=== PATIENT | female | born 1985 | race Caucasian/White ===

== ENCOUNTER 2022-05-14 10:33 | Day surgery (SDC) | payer OTHER ==
[2022-05-14 11:06] LABS: Urine Blood Negative (Negative); Urine Glucose Negative (Negative); Urine Protein Negative (Negative)
[2022-05-14 11:20] LABS: Absolute Lymphocytes (CBC) 1.2 K/uL (0.7-4.9); Hematocrit 30.3 % (36.0-45.0); Lymphocytes % 23.9 % (15.3-44.8); MCV 70.5 fL (80-100); MPV 6.2 fL (7.6-11.3)
[2022-05-14 11:33] LABS: Urine Bacteria >50 /HPF (<20); Urine Mucus 1+ /HPF (None Seen); Urine RBC <5 /HPF (None Seen)
[2022-05-14 11:41] LABS: Albumin 3.5 g/dL (3.4-5.0); Bilirubin Total 0.2 mg/dL (0.2-1.0); Protein, Total 7.7 g/dL (6.4-8.2)
[2022-05-14] MEDS ORDERED: ONDANSETRON 4 MG/2 ML VIAL ONE ×2 (11:51→14:26)
[2022-05-14] MEDS ORDERED: NA CHLORIDE 0.9% 1,000 ML ONE (11:51)
--- NOTE | 2022-05-14 12:14 | RAD REPORT ---
EXAM DESCRIPTION: CTAbdomen Pelvis W Contrast - 05/14/2022 11:56 am CLINICAL HISTORY: Right lower quadrant abdominal pain COMPARISON: No comparisons TECHNIQUE: CT of the abdomen and pelvis was performed with IV contrast. All CT scans are performed using dose optimization technique as appropriate and may include automated exposure control or mA/KV adjustment according to patient size. FINDINGS: Lower chest: Circumferentially thickened distal esophagus suggesting esophagitis. Liver: No acute abnormality or suspicious lesions. Biliary: No biliary ductal dilatation. Stomach: Partial gastrectomy. Duodenum: No significant focal abnormality. Pancreas: No significant abnormality. Spleen: No significant abnormality. Adrenal: No suspicious lesions. Kidney/ureter: No hydronephrosis. No renal calculi. Bilateral renal cysts noted. Retroperitoneum: No retroperitoneal adenopathy. Vascular: No aneurysm. Bowel: The appendix is dilated and hyperenhancing. Is present within the right lower quadrant. No bow el obstruction is seen.. Peritoneum: Small volume of nonspecific pelvic free fluid. Small fat containing umbilical hernia. Bladder: Grossly unremarkable. Reproductive: No adnexal masses. Involuting cyst in the left ovary. Bones: No acute fracture. Other: n/a IMPRESSION: Mildly dilated and elongated appendix is suspicious (but not conclusive) for mild or ear ly acute appendicitis.
--- NOTE | 2022-05-14 12:50 | EDPHYS ---
Physician Documentation [facility] Name: Angelina Lott Age: 36 yrs Sex: Female : 1985 Arrival Date: 05/14/2022 Time: 10:37 Bed 9 Private MD: ED Physician Josesito Mcdonald HPI: 05/14 11:21 This 36 yrs old Female presents to ER via Ambulatory with complaints of Abdominal Pain, ms3 Fever. 11:21 36-year-old female with no past medical history presents for right lower quadrant ms3 abdominal pain that has been persistent for 6 days. Patient states she was seen at urgent care yesterday and instructed to go to the emergency department. Patient states her current discomfort is a 4/10 located in the right lower quadrant. Patient states she took stool softener, Tylenol, Advil with improvement in her symptoms. Patient denies decreased appetite. Patient endorses subjective fever.. 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 - Social history:: Smoking status: Patient denies any tobacco usage or history of. ROS: 11:21 Constitutional: Negative for fever, and chills. Neck: Negative for injury, pain, and ms3 swelling, Cardiovascular: Negative for chest pain, and palpitations. Respiratory: Negative for shortness of breath, cough, wheezing, and pleuritic chest pain. 11:21 Skin: Negative for injury, rash, and discoloration, Psych: Negative for depression, anxiety, suicide ideation, homicidal ideation, and hallucinations. 11:21 Abdomen/GI: Positive for abdominal pain. 11:21 All other systems are negative. Exam: 11:21 Constitutional: This is a well developed, well nourished patient who is awake, alert, ms3 and in no acute distress. ENT: Nares patent. No nasal discharge, no septal abnormalities noted. Tympanic membranes are normal and external auditory canals are clear. Oropharynx with no redness, swelling, or masses, exudates, or evidence of obstruction, uvula midline. Mucous membranes moist. Neck: Trachea midline, no cervical lymphadenopathy. Supple, full range of motion without nuchal rigidity, or vertebral point tenderness. No Meningismus. Chest/axilla: Normal chest wall appearance and motion. Nontender with no deformity. Cardiovascular: Regular rate and rhythm with a normal S1 and S2. No gallops, murmurs, or rubs. Normal PMI, no JVD. No pulse deficits. Respiratory: Lungs have equal breath sounds bilaterally, clear to auscultation and percussion. No rales, rhonchi or wheezes noted. No increased work of breathing, no retractions or nasal flaring. 11:21 Skin: Warm, dry with normal turgor. Normal color with no rashes, no lesions, and no evidence of cellulitis. Neuro: Awake and alert, GCS 15, oriented to person, place, time, and situation. Cranial nerves II-XII grossly intact. Motor strength 5/5 in all extremities. Sensory grossly intact. Cerebellar exam normal. Normal gait. Psych: Awake, alert, with orientation to person, place and time. Behavior, mood, and affect are within normal limits. 11:21 Abdomen/GI: Inspection: abdomen appears normal, Bowel sounds: normal, Palpation: moderate abdominal tenderness, in the right lower quadrant. Vital Signs: 10:41 BP 125 / 92; Pulse 80; Resp 16; Temp 98.2(TE); Pulse Ox 100% on R/A; Weight 53.52 kg bm7 (R); Height 4 ft. 11 in. (149.86 cm); Pain 10/10; 10:41 Body Mass Index 23.83 (53.52 kg, 149.86 cm) bm7 MDM: 11:03 Patient medically screened. ms3 11:21 Differential diagnosis: Appendicitis vs ovarian cyst vs diverticulitis. ms3 12:49 Data reviewed: vital signs, nurses notes, lab test result(s), radiologic studies, and ms3 as a result, I will admit patient. Counseling: I had a detailed discussion with the patient and/or guardian regarding: the historical points, exam findings, and any diagnostic results supporting the discharge/admit diagnosis, lab results, radiology results, the need for further work-up and treatment in the hospital. 05/14 10:57 Order name: CBC with Diff; Complete Time: 12:41 ms3 05/14 10:57 Order name: CMP; Complete Time: 12:41 ms3 05/14 10:57 Order name: Lipase; Complete Time: 12:41 ms3 05/14 10:57 Order name: Urine Microscopic Only; Complete Time: 12:41 ms3 05/14 11:07 Order name: Urine Dipstick-Ancillary; Complete Time: 12:41 EDMS 05/14 11:07 Order name: Urine --Ancillary (enter results); Complete Time: 12:41 bd 05/14 10:57 Order name: CT Abd/Pelvis - IV Contrast Only; Complete Time: 12:41 ms3 05/14 10:57 Order name: IV Saline Lock; Complete Time: 11:50 ms3 05/14 10:57 Order name: Labs collected and sent; Complete Time: 11:50 ms3 05/14 11:36 Order name: Urine Culture EDMS 05/14 13:03 Order name: SARS RAPID bd 05/14 13:04 Order name: NPO EDMS 05/14 10:57 Order name: Urine Dipstick-Ancillary (obtain specimen); Complete Time: 11:50 ms3 05/14 10:57 Order name: Urine Test (obtain specimen); Complete Time: 11:50 ms3 Administered Medications: 11:50 Drug: NS 0.9% 1000 ml Route: IV; Rate: 1 bolus; Site: right antecubital; iw 13:00 Follow up: IV Status: Completed infusion iw Disposition Summary: 05/14/22 12:49 Hospitalization Ordered Hospitalization Status: Observation ms3 Provider: Santana Antunez ms3 Location: Telemetry/MedSurg (observation) ms3 Condition: Stable ms3 Problem: new ms3 Symptoms: are unchanged ms3 Bed/Room Type: Standard ms3 Room Assignment: ms3 Diagnosis - Acute appendicitis with localized peritonitis ms3 - Elevated blood-pressure reading, without diagnosis of hypertension ms3 - Other abdominal pain ms3 Forms: - Medication Reconciliation Form ms3 - SBAR form ms3 Signatures: Dispatcher [employer] Gem Chamorro RN RN iw Josesito Mcdonald DO DO ms3 Oneyda Medina, RN RN bm7
--- NOTE | 2022-05-14 12:50 | ER ---
Nurse's Notes [facility] Name: Angelina Lott Age: 36 yrs Sex: Female : 1985 Arrival Date: 05/14/2022 Time: 10:37 Bed 9 Private MD: Diagnosis: Acute appendicitis with localized peritonitis;Elevated blood-pressure reading, without diagnosis of hypertension;Other abdominal pain Presentation: 05/14 10:42 Chief complaint: Patient states: I started having lower abdominal pain last bm7 and it has gotten worse. I tried taking three stool softeners and that didn't help at all. A family member is a nurse and she did a bounce test on me and said it was positive and that I might have appendicitis. I went to [facility] urgent care and they wouldn't see me and said that I needed to come here. Coronavirus screen: At this time, the client does not indicate any symptoms associated with coronavirus-19. Ebola Screen: No symptoms or risks identified at this time. Initial Sepsis Screen: Does the patient meet any 2 criteria? No. Patient's initial sepsis screen is negative. Does the patient have a suspected source of infection? No. Patient's initial sepsis screen is negative. Risk Assessment: Do you want to hurt yourself or someone else? Patient reports no desire to harm self or others. Onset of symptoms is unknown. 10:42 Method Of Arrival: Ambulatory 7 10:42 Acuity: TONI 3 bm7 10:46 Note ERP at bedside to assess. 7 Triage Assessment: 10:43 General: Appears in no apparent distress. uncomfortable, Behavior is calm, cooperative, bm7 appropriate for age. Pain: Complains of pain in right lower quadrant and left lower quadrant Pain does not radiate. EENT: No deficits noted. No signs and/or symptoms were reported regarding the EENT system. Neuro: No deficits noted. Cardiovascular: No deficits noted. Respiratory: No deficits noted. GI: Abdomen is round non-distended, Bowel sounds present X 4 quads. Abd is soft X 4 quads Abdomen is tender to palpation in right lower quadrant and left lower quadrant Patient currently denies nausea, vomiting. : No deficits noted. No signs and/or symptoms were reported regarding the genitourinary system. Denies burning with urination. Derm: No deficits noted. No signs and/or symptoms reported regarding the dermatologic system. Musculoskeletal: No deficits noted. No signs and/or symptoms reported regarding the musculoskeletal system. 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 - Social history:: Smoking status: Patient denies any tobacco usage or history of. Screenin:19 Abuse screen: Denies threats or abuse. Denies injuries from another. Nutritional iw screening: No deficits noted. Tuberculosis screening: No symptoms or risk factors identified. Fall Risk None identified. Assessment: 12:21 General: Appears in no apparent distress. Behavior is calm, cooperative. Pain: iw Complains of pain in right lower quadrant. Neuro: Level of Consciousness is awake, alert, obeys commands, Oriented to person, place, time, situation, Moves all extremities. Full function. Cardiovascular: Patient's skin is warm and dry. Respiratory: Respiratory effort is even, unlabored, Respiratory pattern is regular, symmetrical. GI: Reports lower abdominal pain. Vital Signs: 10:41 BP 125 / 92; Pulse 80; Resp 16; Temp 98.2(TE); Pulse Ox 100% on R/A; Weight 53.52 kg bm7 (R); Height 4 ft. 11 in. (149.86 cm); Pain 10/10; 10:41 Body Mass Index 23.83 (53.52 kg, 149.86 cm) bm7 ED Course: 10:37 Patient arrived in ED. mr 10:40 Josesito Mcdonald DO is Attending Physician. ms3 10:43 Triage completed. bm7 10:43 Arm band placed on right wrist. bm7 11:00 Inserted saline lock: 20 gauge in right antecubital area, using aseptic technique. iw Blood collected. 11:39 Gem Murphy, RN is Primary Nurse. iw 11:57 CT Abd/Pelvis - IV Contrast Only In Process Unspecified. EDMS 12:22 No provider procedures requiring assistance completed. iw 12:30 Patient has correct armband on for positive identification. iw 12:48 Santana Antunez MD is Hospitalizing Provider. ms3 13:19 Patient admitted, IV remains in place. iw Administered Medications: 11:50 Drug: NS 0.9% 1000 ml Route: IV; Rate: 1 bolus; Site: right antecubital; iw 13:00 Follow up: IV Status: Completed infusion iw Medication: 13:00 VIS not applicable for this client. iw Outcome: 12:49 Decision to Hospitalize by Provider. ms3 13:19 Admitted to OR accompanied by tech, via wheelchair. iw 13:19 Condition: good 13:19 Discharge instructions given to patient, family, Instructed on the need for admit. 13:20 Patient left the ED. iw Signatures: Dispatcher [employer] EDOH Bree Lazar Irene, RN RN iw Josesito Mcdonald DO DO ms3 Oneyda Medina, RN RN bm7
[2022-05-14] MEDS ORDERED: MORPHINE 4 MG/ML SYR IV PRN (12:59)
[2022-05-14] MEDS ORDERED: ONDANSETRON 4 MG/2 ML VIAL IV PRN (12:59)
[2022-05-14] MEDS ORDERED: D5 0.45 NS 1,000 ML IV SCH (13:00)
[2022-05-14] MEDS ORDERED: BUPIVACAINE 0.5% PF 10 ML VIAL ONE (13:07)
[2022-05-14] MEDS ORDERED: BUPIVACAINE 0.25% PF 10 ML VIAL ONE (13:07)
[2022-05-14 13:48] LABS: SARS-CoV-2 Antigen Rapid Res Negative (Negative)
[2022-05-14] MEDS ORDERED: BUPIVACAINE 0.25% PF 10 ML VIAL SQ ONE ×3 (13:49→15:00)
[2022-05-14] MEDS ORDERED: PIPER TAZO 3.375 GM in NA CHLORIDE 0.9% 100 ML IV ONE (14:00)
[2022-05-14] MEDS ORDERED: Ringers Lactate 1,000 ML IV ONE (14:05)
[2022-05-14] MEDS ORDERED: ROCURONIUM 50 MG/5 ML VIAL IV ONE (14:26)
[2022-05-14] MEDS ORDERED: GLYCOPYRROLATE 0.2 MG/ML SYR ONE (14:26)
[2022-05-14] MEDS ORDERED: NEOSTIGMINE 1 MG/ML -10 ML VIAL ONE (14:26)
[2022-05-14] MEDS ORDERED: propofoL 200 MG/20 ML VIAL IV ONE (14:26)
[2022-05-14] MEDS ORDERED: FENTANYL CITR 100 MCG/2 ML ONE (14:26)
[2022-05-14] MEDS ORDERED: MIDAZOLAM HCL 2 MG/2 ML INJ ONE (14:26)
[2022-05-14] MEDS ORDERED: LIDOCAINE 2% MPF 5 ML VIAL ONE (14:26)
[2022-05-14] MEDS ORDERED: dexAMETHasone 10 MG/ML VIAL ONE (15:06)
[2022-05-14] MEDS ORDERED: KETOROLAC 30 MG/ML INJ ONE (15:06)
--- NOTE | 2022-05-14 15:07 | P.OP ---
Preoperative diagnosis: Acute Non-Perforated Appendicitis Postoperative diagnosis: Acute Non-Perforated Appendicitis Primary procedure: Laparoscopic Appendectomy Anesthesia: GETA + Local Estimated blood loss: <5cc Specimen: Appendix Findings: Appendix adhered to R ovary, adhesions, umb hernia, appendicitis Complications: None Transferred to: Recovery Room Condition: Good
[2022-05-14] MEDS: HYDROMORPHONE HCL 1 MG/ML INJ ONE ×5 (15:27→15:49)
[2022-05-14] MEDS ORDERED: HYDROMORPHONE HCL 1 MG/ML INJ ONE (15:47)
[2022-05-14 16:31] VITALS: BP 93/58; TEMP 97.2; O2SAT 100
--- NOTE | 2022-05-15 01:13 | HP ---
Date of Admission: 05/14/2022 Brief History Of Present Illness: The patient is a 36-year-old female who presents with 6 days of pe riumbilical, now right lower quadrant abdominal pain associated with low-grade fever, chills, and wor sening abdominal pain. She states that this got significantly worse over the past few days and as byrd ch came to the emergency room with the above-stated complaints. Past Medical History: Negative. Past Surgical History: She has had 3 C sections, 1 sleeve gastrectomy, ectopic surgery, an d breast augmentation. Allergies: NO KNOWN DRUG ALLERGIES. Medications: Home medications include Adderall. Social History: She denies smoking. Drinks alcohol only socially on occasion. Denies any recreatio nal drug use. Physical Examination: Vital Signs: Her blood pressure at the time of my examination, 125/90, pulse 80, respiratory rate 16 , temperature 98.2, pulse ox 100% on room air. She is 4 feet 11 inches approximately 53 kg. General: She is awake, alert, and oriented. Psychiatric: Appropriate and conversive. HEENT: She is normocephalic. Sclerae anicteric. Mucous membranes moist. Oropharynx clear. Neck: Supple without JVD. Chest: Expansion and excursion. Cardiovascular: Regular rate and rhythm. Pulmonary: Clear to auscultation bilaterally. Abdomen: Soft with positive right lower quadrant tenderness to McBurney point. Positive focal perit onitis. Positive rebound. Positive guarding. Well-healed surgical scars were evident. Extremities: No clubbing, cyanosis, or edema. Skin: Warm and dry. Laboratory Data: White blood cell count 4.8, hemoglobin is 9.7, hematocrit of 30.3, platelet count i s 448, neutrophils at 60%. Her sodium 138, potassium 4.0, chloride 105, carbon dioxide 28, BUN 11, c reatinine 0.93, glucose 97, total bilirubin 0.2, AST 17, ALT 26, alkaline phosphatase is 60. Her lip ase is 133. UA had greater than 50 bacteria. test was negative. COVID was negative. She had a CT scan performed of the abdomen and pelvis, which was officially read as mildly dilated and a long appendix, suspicious, but not conclusive for mild early acute appendicitis. The appendix is di lated with hyperenhancement. No bowel obstruction. Small volume of nonspecific pelvic fluid. Small fat containing umbilical hernia. Assessment And Plan: This is a 36-year-old female who comes in with signs and symptoms of possible e heri appendicitis. 1.IV fluid hydration. 2.Antibiotic coverage with Zosyn 3.375 IV q.6. 3.I have explained the risks, benefits, and alternatives of laparoscopic possible open appendectomy including, but not limited to bleeding, infection, damage to surrounding tissues, and internal organs , need for further operation and procedures. The patient agrees to proceed as indicated. GREGORIO/JOSE Voice ID: [id number]
--- NOTE | 2022-05-15 01:34 | OP ---
Date of Procedure: 05/14/2022 Surgeon: Santana Antunez MD, Preoperative Diagnosis: Acute nonperforated appendicitis. Postoperative Diagnosis: Acute nonperforated appendicitis. Procedure Performed: Laparoscopic appendectomy. Anesthesia: General endotracheal plus local with 0.25% Marcaine. Estimated Blood Loss: Less than 5 cc. Specimen: Vermiform appendix. Findings: 1.The appendix was adhered to the right ovary with significant inflammatory changes. 2.Multiple intraabdominal adhesions from omentum to the anterior abdominal wall. 3.Multiple adhesions from the uterus to the anterior abdominal wall, which were thick and fibrous. 4.Evidence of acute appendicitis with inflammatory change to the appendix. 5.The patient had inflammatory change to the right lower quadrant as well. 6.Colon adhered to lateral abdominal wall with adhesions. Complications: None. The patient was transferred to recovery room in good condition. Procedure In Detail: After informed consent was obtained, the patient was brought to the operating r oom and prepped and draped in the usual sterile fashion. After adequate anesthesia achieved, an area at the infraumbilical position was anesthetized with 4% Marcaine and sharply incised and a 5 mm 0-de gree optical trocar was introduced in the abdomen without any evidence of complication. Insufflation obtained at 15 mmHg at this time. There was no injury to vital structures upon entry into the abdom en. The hernia was appreciated preop and not entered during entry of the abdomen. Additional trocar sites were placed, 1 in the midline superior to the umbilicus, this was a 5 mm trocar placed under d irect visualization and 1 in the right lower quadrant. Similarly anesthetized, sharply incised, and a 5 mm trocar was placed under direct visualization without any evidence of complication. The umbili john trocar was then upsized to a 12 mm under direct visualization without evidence of any complicatio n. At this point, the patient was positioned in the head down, right side up position. I grasped th e patient's cecum and following the taenia was able to identify the appendix quite readily, which was found to be firmly adhered into the pelvis and firmly adhered to the right ovary. This was separate d from the right ovary using blunt dissection, using the LigaSure device to separate the ovary from t he appendix. The appendix was then grasped and elevated. There were additional adhesions on the rig ht side of the abdomen including the cecum to the lateral abdominal wall, which were taken down using primarily blunt and sharp dissection of the LigaSure device. These were taken down quite easily. F ew adhesions to the anterior bowel wall from the omentum were taken down using the LigaSure device to allow for proper visualization. At this point, mesoappendiceal window was created with a LigaSure d evice. Endo-ELIZABETH 45 purple load fired across the base of the appendix with good approximation of tiss ues. I then used the LigaSure device to take down the mesoappendix and the appendix was then placed in EndoCatch bag, removed through the umbilical trocar and sent off for pathologic examination. At t his point, the abdomen was re-insufflated. I inspected the staple line and found that while being in tact, I felt that I could get a closer margin on this and as such, I brought in the ELIZABETH 45 purple mike d once again and fired an additional staple fusing line inspector to the confluence of the cecum without stapli ng over the cecum at this point, and the residual tissue was removed and the staple line appeared to be good and intact without any leakage at this point. I then irrigated the area copiously and suctio arianna out all the effluent, washed the pelvis out with approximately a L of fluid and suctioned this ou t as well. No hemostatic measures were required at the end of procedure. No leakage from the staple line was appreciated at this point, and the patient was positioned back in a neutral position. I th en brought the flexible portion of the omentum and tucked it around the staple line in the right lowe r quadrant. At this point, the umbilical trocar site was closed using a Aftab-Bertha suture passe r with 0 Vicryl in an interrupted fashion and good approximation of tissues. The abdomen was then co mpletely desufflated under direct visualization without any evidence of complication. The remaining trocars were removed. All skin incisions were then copiously irrigated and closed with a 4-0 Monocry l in a running fashion. Dermabond was placed over top. The patient tolerated the procedure without any evidence of any complication and transferred to PACU in good condition. All counts were correct at the end of the case. GREGORIO/JOSE Voice ID: [id number] Report ID: [id number]
== END 2022-05-14 17:03 | disposition home or self-care (01) ==
LOC: ER 10:33 → DS 12:58 → ERHOLD 12:58 → UNDOADMOB 12:58 → DS 17:03
PROVIDERS: ATTEND Surgery
PROC: 0DTJ4ZZ Resection of Appendix, Percutaneous Endoscopic Approach (ICD-10-PCS; principal; 2022-05-14 13:30)
DX: K35.80 Unspecified acute appendicitis (principal); Z20.822 Contact with and (suspected) exposure to COVID-19
CPT/HCPCS: 36415; 74177; 80053; 81003; 81015; 81025; 83690; 85025; 87086; 87088; 87811; 88304; 96360; 99285; J1100; J1170; J2001; J2250; J2405; J2543; J2704; J2710; J3010; J7030; J7120; Q9967